=== PATIENT | male | born 1950 | race Caucasian/White ===

== ENCOUNTER 2019-09-18 13:32 | Outpatient (CLI) | payer OTHER ==
[~2019-09-18 13:32] MED LIST: NABUMETONE500 MG PO; PERCOCET 5/3251 TAB PO; ZOCOR20 MG PO
== END 2019-09-18 13:45 | disposition home or self-care (01) ==
LOC: LAB 13:32
PROVIDERS: ATTEND Urology
DX: R97.20 Elevated prostate specific antigen [PSA] (principal)

== ENCOUNTER 2019-10-06 07:10 | Outpatient (CLI) | payer OTHER | END 2019-10-06 07:18 | disposition home or self-care (01) | LOC: SONOGRAMA 07:10 | PROVIDERS: ATTEND Urology | DX: R97.20 Elevated prostate specific antigen [PSA] (principal) ==

== ENCOUNTER 2019-11-23 14:40 | Inpatient (IN) | payer OTHER ==
[~2019-11-23] VITALS: Ht 172.7 cm; Wt 87.5 kg
[2019-12-06] MEDS ORDERED: CENTRUM SILVER1 EAC4 PO (09:17)
[2019-12-13] MEDS ORDERED: CLOTRIMAZOLE28 GM (09:29)
[2019-12-13] MEDS ORDERED: VITAMIN C1000 MG (09:29)
[2019-12-13] MEDS ORDERED: VITAMIN D325 MC2 (09:29)
[2019-12-13] MEDS ORDERED: VITAMIN E1000 UNI1 (09:30)
[2019-12-13] MEDS ORDERED: SALINE MIST45 ML (09:30)
[2019-12-13] MEDS ORDERED: REFRESH TEARS15 ML (09:30)
== END 2019-12-15 11:00 | disposition home or self-care (01) | DRG 708 ==
LOC: O/R 12-13 05:36 → SURH 12-13 07:00 → SURG 12-13 13:13 → SURH 12-14 16:25
PROVIDERS: ADMIT Urology; ATTEND Urology
PROC: 07BC0ZZ Excision of Pelvis Lymphatic, Open Approach (ICD-10-PCS; 2019-12-13)
PROC: 0VB30ZZ Excision of Bilateral Seminal Vesicles, Open Approach (ICD-10-PCS; 2019-12-13)
PROC: 0VT00ZZ Resection of Prostate, Open Approach (ICD-10-PCS; principal; 2019-12-13 07:00)
DX: C61 Malignant neoplasm of prostate (principal); D36.0 Benign neoplasm of lymph nodes; D30.3 Benign neoplasm of bladder

== ENCOUNTER 2020-05-01 11:08 | Outpatient (CLI) | payer OTHER ==
[~2020-05-01 11:08] MED LIST changes: +CENTRUM SILVER1 EAC4 PO; +CLOTRIMAZOLE28 GM; +REFRESH TEARS15 ML; +SALINE MIST45 ML; +VITAMIN C1000 MG; +VITAMIN D325 MC2; +VITAMIN E1000 UNI1
== END 2020-05-01 18:00 | disposition home or self-care (01) ==
LOC: PPH VACUNA 11:08
PROVIDERS: ATTEND Emergency Medicine Pediatric Emergency Medicine
DX: Z23 Encounter for immunization (principal)

== ENCOUNTER → 2020-05-22 | Outpatient (CLI) | payer OTHER | END | disposition home or self-care (01) | LOC: PPH VACUNA | PROVIDERS: ATTEND Emergency Medicine Pediatric Emergency Medicine | DX: Z23 Encounter for immunization (principal) ==

== ENCOUNTER 2020-06-22 08:08 | Emergency (ER) | payer OTHER ==
[~2020-06-22] VITALS: Ht 172.7 cm; Wt 89.4 kg
== END 2020-06-22 09:55 | disposition home or self-care (01) ==
LOC: ER 08:08
DX: S60.511A Abrasion of right hand, initial encounter (principal); S60.311A Abrasion of right thumb, initial encounter; W55.03XA Scratched by cat, initial encounter; Y93.89 Activity, other specified; Y92.017 Garden or yard in single-family (private) house as the place of occurrence of the external cause; Y99.8 Other external cause status

== ENCOUNTER 2020-08-16 05:50 | Day surgery (SDC) | payer OTHER | END 2020-08-16 10:05 | disposition home or self-care (01) | LOC: AMB-ENDOS 05:50 | PROVIDERS: ATTEND Colon & Rectal Surgery | DX: D12.2 Benign neoplasm of ascending colon (principal); Z20.822 Contact with and (suspected) exposure to COVID-19; K64.1 Second degree hemorrhoids ==

== ENCOUNTER 2022-06-17 11:38 | Outpatient (CLI) | payer OTHER | END 2022-06-17 12:00 | disposition home or self-care (01) | LOC: SONOGRAMA 11:38 | PROVIDERS: ATTEND Orthopaedic Surgery | DX: M25.512 Pain in left shoulder (principal) ==

== ENCOUNTER → 2022-07-01 | Outpatient (CLI) | payer OTHER | END | disposition home or self-care (01) | LOC: RAD 10:10 | PROVIDERS: ATTEND Orthopaedic Surgery | DX: M25.561 Pain in right knee (principal); M25.562 Pain in left knee ==

== ENCOUNTER 2023-07-20 12:33 | Outpatient (CLI) | payer OTHER | END 2023-07-20 12:42 | disposition home or self-care (01) | LOC: TOM 12:33 | PROVIDERS: ATTEND Internal Medicine Gastroenterology | DX: R19.5 Other fecal abnormalities (principal) ==

== ENCOUNTER 2024-04-22 13:28 | Emergency (ER) | payer OTHER ==
[~2024-04-22] VITALS: Ht 172.7 cm; Wt 87.1 kg
[2024-04-22] MEDS ORDERED: AMOX-CLAV 500-1 EACH PO (14:14)
[2024-04-22] MEDS ORDERED: ROSUVASTATIN CA20 MG PO (14:19)
[2024-04-22] MEDS ORDERED: COZAAR50 MG PO (14:19)
[2024-04-22] MEDS ORDERED: KETOROLAC TROMETHAMINE 60 MG VIAL IM ONE ×2 (14:56→15:00)
[2024-04-22] MEDS ORDERED: CEFTRIAXONE SODIUM 1,000 MG VIAL ONE (14:57)
[2024-04-22] MEDS ORDERED: CEFTRIAXONE SODIUM 1,000 MG VIAL IM ONE (15:00)
== END 2024-04-22 15:06 | disposition home or self-care (01) ==
LOC: ER 13:31
DX: L02.91 Cutaneous abscess, unspecified (principal)
CPT/HCPCS: 96372; 99282; J0696; J1885